=== PATIENT | female | born 1960 | race Caucasian/White ===

== ENCOUNTER → 2017-09-09 15:22 | Outpatient (CLI) | payer SELFPAY ==
[2017-09-09 18:16] LABS: Anion Gap 6 (5-15); BUN 18 mg/dL (7-18); BUN/Creat Ratio 20.4 RATIO (10-20); Calcium,Total 8.8 mg/dL (8.5-10.1); Chloride 104 mmol/L (98-107); Creatinine, Serum 0.88 mg/dL (0.55-1.02); EST Glomerular Filtration Rate 70 mL/min (>60); Est Glom Filt Rate - Afr Amer 85 mL/min (>60); Glucose 93 mg/dL (74-106); Sodium Level 141 mmol/L (136-145); Thyroid Stim Hormone (TSH) 1.31 uIU/mL (0.358-3.74)
== END ==
PROVIDERS: Family Provider Family Medicine; PCP Family Medicine; Visit Provider Family Medicine
DX: I10 Essential (primary) hypertension (principal); E03.9 Hypothyroidism, unspecified
CPT/HCPCS: 36415; 80048; 84443

== ENCOUNTER → 2017-09-16 11:19 | Outpatient (CLI) | payer SELFPAY ==
--- NOTE | 2017-09-16 11:30 | RAD_ITS ---
STUDY: X-RAY - LUMBAR SPINE REASON FOR EXAM: Female, 57 years old. Neuropathy, left sciatica. History of multiple sclerosis. TECHNIQUE: 5 view(s) of the lumbar spine were obtained. COMPARISON: None FINDINGS: Normal lumbar lordosis. There is no substantial scoliosis. There is a mild grade 1 anterolisthesis of L4 on L5. There is mild multilevel anterior endplate spondylosis of the lumbar vertebrae. There is moderate degenerative narrowing at L4-5, and minor narrowing at L2-3. There is no demonstrated osseous destructive lesion or acute fracture. The degenerative arthroses of the lower lumbar facet articulations, as prominently at L4-5 and on the right at L5-S1. There are mild degenerative arthrosis of the bilateral sacroiliac joints. The soft tissue structures are unremarkable. RAD/L/S Spine Min 4 Views IMPRESSION: Degenerative changes of the spine, as detailed above. Electronically Signed: Shaun Reed MD at 19:33 EDT , Service support ,
== END ==
PROVIDERS: Family Provider Family Medicine; PCP Family Medicine; Visit Provider Family Medicine
DX: G62.9 Polyneuropathy, unspecified (principal)
CPT/HCPCS: 72110

== ENCOUNTER → 2018-12-29 10:13 | Outpatient (CLI) | payer SELFPAY ==
[2018-12-29 13:10] LABS: Thyroid Stim Hormone (TSH) 0.63 uIU/mL (0.358-3.74)
== END ==
PROVIDERS: Family Provider Family Medicine; PCP Family Medicine; Referring Provider Family Medicine; Visit Provider Family Medicine
DX: E03.9 Hypothyroidism, unspecified (principal)
CPT/HCPCS: 36415; 84443

== ENCOUNTER → 2020-10-12 11:07 | Outpatient (CLI) | payer OTHER, SELFPAY ==
--- NOTE | 2020-10-12 11:14 | BI_ITS ---
MAMMOGRAPHY - BILATERAL SCREENING REASON FOR EXAM: Female, 60 years old. Routine annual screening examination. PERTINENT HISTORY: Non-contributory. History of remote bilateral breast reduction surgery. TECHNIQUE: Digital bilateral breast yury (3D mammographic acquisition) in the CC and MLO projections. 2-D mediolateral oblique (MLO) and craniocaudad (CC) views of both breasts were obtained. CAD: Full Field Digital Mammography with Computer Added Detection was performed. COMPARISON: No comparison mammograms available at this time. If any prior films become available, an addendum to this report can be generated. FINDINGS: Breast Composition: There are scattered areas of fibroglandular density. There are no dominant masses or suspicious calcifications. No other significant abnormalities are identified. BI/SCRN MAMM (CAD)W/YURY BILAT IMPRESSION: Negative screening mammogram. Yearly followup mammogram recommended. (A) ASSESSMENT CATEGORY: BIRADS Category 1: Negative. A letter regarding these results will be sent to the patient by the facility within 30 days. Approximately 10% of breast cancers are not detected by mammography. A normal mammogram should not delay biopsy of a clinically suspicious abnormality. [id number] Electronically Signed: Alfonzo Sheth MD at 12:12 EDT , Service support ,
== END ==
PROVIDERS: PCP Family Medicine; Referring Provider Family Medicine; Visit Provider Family Medicine
DX: Z12.31 Encounter for screening mammogram for malignant neoplasm of breast (principal)
CPT/HCPCS: 77063; 77067

== ENCOUNTER → 2021-03-20 08:20 | Outpatient (CLI) | payer OTHER, SELFPAY ==
[2021-03-20 10:39] LABS: Anion Gap 5 (5-15); BUN 11 mg/dL (7-18); BUN/Creat Ratio 13.1 RATIO (10-20); Calcium,Total 8.6 mg/dL (8.5-10.1); Chloride 106 mmol/L (98-107); Cholesterol 182 mg/dL (200); Creatinine, Serum 0.84 mg/dL (0.55-1.02); EST Glomerular Filtration Rate 74 mL/min (>60); Est Glom Filt Rate - Afr Amer 89 mL/min (>60); Free T3 2.3 pg/mL (2.18-3.98); Glucose 105 mg/dL (74-106); High Density Lipoprotein 55 mg/dL; Potassium 4.1 mmol/L (3.5-5.1); Sodium Level 140 mmol/L (136-145); T4 Free Direct 1.07 ng/dL (0.76-1.46); Thyroid Stim Hormone (TSH) 1.83 uIU/mL (0.358-3.74); Triglycerides 160 mg/dL; Very Low Density Lipoprotein 32 mg/dL (5-40)
== END ==
PROVIDERS: PCP Family Medicine; Visit Provider Family Medicine
DX: I10 Essential (primary) hypertension (principal); E03.9 Hypothyroidism, unspecified
CPT/HCPCS: 36415; 80048; 80061; 84439; 84443; 84481

== ENCOUNTER 2021-06-22 09:06 | Emergency (ER) | payer OTHER, SELFPAY ==
[2021-06-22 09:08] VITALS: BP 155/99; PULSE 84; RESP 16; TEMP 35.9; O2SAT 98; BMI 35.2
--- NOTE | 2021-06-22 09:31 | CT_ITS ---
STUDY: CT ABDOMEN AND PELVIS WITHOUT CONTRAST REASON FOR EXAM: Female, 61 years old. Abdominal pain and distention RADIATION DOSAGE (If Supplied By Facility): CTDIvol = ( 16.45 ) mGy, DLP = ( 932.69 ) mGycm TECHNIQUE: Transaxial images were obtained from the dome of the diaphragm to the symphysis pubis without oral contrast, and without intravenous contrast. Sagittal and coronal images were reconstructed. Individualized dose optimization techniques were used for this CT. COMPARISON: None. FINDINGS: The visualized lung bases are unremarkable. The visualized portions of the heart are within normal limits. Liver is unremarkable aside from scattered simple hepatic cysts. No specific follow-up needed. No suspicious enhancing lesion. There are multiple gallstones. Normal spleen. Normal pancreas. Normal bilateral adrenal glands. Normal right kidney. Normal left kidney. Normal visualized stomach. Normal small intestine. Retained stool noted throughout the majority of the colon. There are scattered colonic diverticula without CT evidence of acute diverticulitis. The appendix is visualized and appears normal. Appendix seen on coronal recon image 61 Normal abdominal aorta. Normal inferior vena cava. Normal retroperitoneum. Normal urinary bladder. Normal abdominal wall. Normal osseous structures. CT/Abdomen/Pelvis without Cont IMPRESSION: Cholelithiasis, no CT evidence of acute cholecystitis Multiple simple hepatic cysts, no specific follow-up needed No free intraperitoneal fluid, air, or suspicious adenopathy, normal appendix visualized Retained stool with diverticulosis Electronically Signed: Shaun Austin MD at 10:18 EDT ,
--- NOTE | 2021-06-22 09:32 | EX.ED.DYSGE1 ---
HPI <CHRISTA Garcia - Last Filed: 06/22/21 10:37> History of Present Illness Chief Complaint: Back Narrative Narrative: 61-year-old female with history of hypothyroidism, presents to the emergency department for a period of intense back pain. Patient has had thoracic back pain ongoing for greater than 1 month which she has been seeing her primary care doctor as well as a chiropractor. Patient states that roughly 11 PM last evening, she had one of the most intense searing pain she never had in her life, patient states that she was unable to sit still, she was sweating felt nauseous and the episode lasted 20 minutes. Patient states that she could not sleep at nighttime because she was so anxious that this pain would return. Patient states that she did have more urinary frequency however nothing out of the ordinary. Patient states that when the pain was searing she did remember grabbing her left side. Patient did call her PCP today who told her to come the ER for a work-up and may be rule out kidney stone. At this time, patient is asymptomatic. Denies any fever chills nausea vomiting this time. PFSH <CHRISTA Garcia - Last Filed: 06/22/21 10:37> [facility] Home Medications bupropion HCl 300 mg PO DAILY 06/22/21 [History Last Taken Unknown] levothyroxine 112 mcg PO DAILY 06/22/21 [History Last Taken Unknown] Allergy/AdvReac Type Severity Reaction Status Date / Time No Known Allergies Allergy Verified 06/22/21 09:06 Social History Smoking Status: Never smoker ROS <CHRISTA Garcia - Last Filed: 06/22/21 10:37> ROS ED ROS Narrative Constitutional: Negative for fever, chills, weight loss or gain, weakness Eyes: Negative for vision loss, vision change, double vision ENT: Negative for any hearing changes, ringing in the ears, discharge, pain Nose: Negative for any congestion, runny nose, sinus pain, allergies Throat: Negative for any sore throat, swelling, voice changes, Cardiovascular: Negative for any chest pain, tightness, palpitations, racing heartbeat Respiratory: Negative for any cough, sputum production, hemoptysis, shortness of breath, shortness of breath on exertion, Gastrointestinal: Negative for any abdominal pain, nausea, vomiting, diarrhea, constipation, blood in stool, blood in vomit : Negative for any incontinence, dysuria, retention, blood in urine. Positive for urinary frequency Muscle skeletal: Negative for any muscle joint pain, stiffness, myalgias, arthralgias, neck pain. Positive for. Of severe back pain, left flank pain Neurological: Negative for any headache, dizziness, syncope, numbness or tingling Skin: Negative for any rashes, lumps, itching, abrasions, lacerations Psychiatric: Negative for any depression, anxiety, stress, suicidal ideation, homicidal ideation Hematologic: Negative for any easy bruising, excessive bruising, easy bleeding Allergies: Negative for any eczema, hives, rash EXAM <CHRISTA Garcia - Last Filed: 06/22/21 10:37> Physical Exam Const Vital Signs: 06/22/21 09:08 Temperature 96.7 F L Temperature Source Temporal Pulse Rate 84 Respiratory Rate 16 Blood Pressure 155/99 H Blood Pressure Mean 117 Pulse Ox 98 Oxygen Delivery Method Room Air Positive well nourished and well developed General Appearance ED: well developed Eyes PERRL and EOMs intact bilaterally Neck no lymphadenopathy and supple Chest Wall inspection of chest normal and palpation of chest normal Resp normal respiratory effort and clear to auscultation bilaterally Cardio regular rate and regular rhythm GI normal to inspection, nondistended, normoactive bowel sounds, non-tender, non-distended and no masses Auscultation: normoactive bowel sounds Palpation: soft Back/Spine no CVA tenderness Extremity normal to inspection Neuro oriented x3 and CN's II-XII intact bilaterally Sensorium / Orientation: alert Motor Exam: strength 5/5 throughout Psych mental status grossly normal Skin no rashes or lesions noted <Dr. Gracy Hernandez DO - Last Filed: 06/22/21 10:39> Physical Exam Const Vital Signs: 06/22/21 09:08 Temperature 96.7 F L Temperature Source Temporal Pulse Rate 84 Respiratory Rate 16 Blood Pressure 155/99 H Blood Pressure Mean 117 Pulse Ox 98 Oxygen Delivery Method Room Air MDM <CHRISTA Garcia - Last Filed: 06/22/21 10:37> [facility] Narrative Medical decision making narrative: Patient appears well, patient appears nontoxic, vital signs are stable. Patient is asymptomatic now however she is concerned due to a severe back pain, abdominal pain, chest pain that occurred last night for 20 minutes. Patient did receive a full work-up.Patient's laboratory values were grossly unremarkable, patient had a negative urinalysis, negative for any infection or blood. Patient's high-sensitivity opponent was negative, patient's D-dimer was negative, patient's EKG was normal sinus with no ectopy. Patient's CT scan of the abdomen and pelvis showed no free intraperitoneal fluid, air or suspicious adenopathy and had a normal appendix. At this time, there is no indication of any acute pathology, patient is also asymptomatic at this time. At this time, there is no evidence of any OH, ACS, pulmonary embolus, acute intra-abdominal pathology. Patient feels well and will be discharged. Patient struck to return for any worsening symptoms, patient to follow-up outpatient. Lab Data Labs: Laboratory Results - last 24 hr 06/22/21 06/22/21 06/22/21 09:38 09:38 09:40 WBC 7.1 RBC 5.08 Hgb 15.0 Hct 45.2 MCV 89.0 MCH 29.5 MCHC 33.2 RDW Std Deviation 40.6 RDW Coeff of Barbara 12.4 Plt Count 282 MPV 9.7 Immature Gran % (Auto) 0.100 Neut % (Auto) 70.4 H Lymph % (Auto) 19.6 [place] % (Auto) 8.5 Eos % (Auto) 1.0 Baso % (Auto) 0.4 Absolute Neuts (auto) 5.0 Absolute Lymphs (auto) 1.39 Nucleated RBC % 0 D-Dimer Quant (PE/DVT) Sodium 139 Potassium 3.8 Chloride 108 H Carbon Dioxide 26.0 Anion Gap 5 BUN 15 Creatinine 0.99 Estim Creat Clear Calc 59.50 Est GFR (MDRD) Af Amer 74 Est GFR (MDRD) Non-Af 61 BUN/Creatinine Ratio 15.2 Glucose 108 H Calcium 8.7 Total Bilirubin 0.50 Direct Bilirubin 0.15 AST 33 ALT 31 Alkaline Phosphatase 95 Troponin I High Sens < 3 L Total Protein 7.7 Albumin 4.0 Globulin 3.7 Urine Color Yellow Urine Clarity Clear Urine pH 5.0 Ur Specific [place] 1.015 Urine Protein Negative Urine Glucose (UA) Normal Urine Ketones Negative Urine Occult Blood Negative Urine Nitrite Negative Urine Bilirubin Negative Urine Urobilinogen Normal Ur Leukocyte Esterase Negative Urine RBC 0 SEEN Urine WBC 0 SEEN Ur Squamous Epith Cells 0 SEEN Urine Bacteria 0 SEEN Urine Mucus 0 SEEN 06/22/21 10:04 WBC RBC Hgb Hct MCV MCH MCHC RDW Std Deviation RDW Coeff of Barbara Plt Count MPV Immature Gran % (Auto) Neut % (Auto) Lymph % (Auto) [place] % (Auto) Eos % (Auto) Baso % (Auto) Absolute Neuts (auto) Absolute Lymphs (auto) Nucleated RBC % D-Dimer Quant (PE/DVT) 0.39 Sodium Potassium Chloride Carbon Dioxide Anion Gap BUN Creatinine Estim Creat Clear Calc Est GFR (MDRD) Af Amer Est GFR (MDRD) Non-Af BUN/Creatinine Ratio Glucose Calcium Total Bilirubin Direct Bilirubin AST ALT Alkaline Phosphatase Troponin I High Sens Total Protein Albumin Globulin Urine Color Urine Clarity Urine pH Ur Specific [place] Urine Protein Urine Glucose (UA) Urine Ketones Urine Occult Blood Urine Nitrite Urine Bilirubin Urine Urobilinogen Ur Leukocyte Esterase Urine RBC Urine WBC Ur Squamous Epith Cells Urine Bacteria Urine Mucus Radiography Diagnostic Testing: Clinical Impression(s) from Imaging Studies Abdomen/Pelvis CT 06/22/21 09:31 IMPRESSION: Cholelithiasis, no CT evidence of acute cholecystitis Multiple simple hepatic cysts, no specific follow-up needed No free intraperitoneal fluid, air, or suspicious adenopathy, normal appendix visualized Retained stool with diverticulosis Electronically Signed: Shaun Austin MD at 10:18 EDT , EKG Normal sinus rhythm: Attestation: I personally reviewed and interpreted this EKG as follows: Comments: Normal sinus rhythm, rate of 64 bpm, MO interval 162 ms, QRS duration 90 ms, no acute ST elevation, no acute infarct noted. <Dr. Gracy Hernandez, DO - Last Filed: 06/22/21 10:39> [facility] Narrative Medical decision making narrative: I have personally performed a face to face assessment of the patient and have reviewed the GINI Note. I performed a substantive portion of the visit including all aspects of the following. My bañuelos findings include: History is [patient presents to the emergency department with complaint of a pain across her chest and upper abdomen last evening. Patient states that it came on all of a sudden felt like she was going to explode. Patient states that she has been having some discomfort in her mid back for about a month and has been seen by chiropractor. Patient states that pain seems to come and go. She denies chest pain or shortness of breath. She denies fever or recent illness. Patient did have some mild nausea when she had that severe pain last evening. Patient also felt like her ears were quite full when this happened. Patient states eventually the pain just dissipated went away and has not come back. Currently she is not having any pain. No history of kidney stones. She denies urinary symptoms.] Exam is [HEENT-PERRLA, EOMI. Cranial nerves II through XII grossly intact. TMs clear. Mucous membranes moist. No adenopathy. Cardiovascular-regular rate and rhythm without murmur or ectopy Lungs-clear to auscultation, chest wall stable without crepitus or subcu emphysema Abdomen-normoactive bowel sounds, soft, nontender, no rebound or rigidity, no peritoneal signs. Extremities-intact ?4, normal range of motion, normal pulses, atraumatic] Medical Decison Making patient's lab work-up was unremarkable. EKG and troponin were unremarkable. D-dimer was negative. CT scan of the abdomen pelvis showed gallstones without evidence of cholecystitis. At this point the etiology of her pain is unclear. She also had a negative D-dimer. Patient advised to follow-up with primary care physician in 3 to 5 days. She is to return if worsening pain, chest pain, shortness of breath, or condition worsening with [ ] Other additions or changes: [None] Lab Data Attestation: I reviewed the patient's lab results. Labs: Laboratory Results - last 24 hr 06/22/21 06/22/21 06/22/21 09:38 09:38 09:40 WBC 7.1 RBC 5.08 Hgb 15.0 Hct 45.2 MCV 89.0 MCH 29.5 MCHC 33.2 RDW Std Deviation 40.6 RDW Coeff of Barbara 12.4 Plt Count 282 MPV 9.7 Immature Gran % (Auto) 0.100 Neut % (Auto) 70.4 H Lymph % (Auto) 19.6 [place] % (Auto) 8.5 Eos % (Auto) 1.0 Baso % (Auto) 0.4 Absolute Neuts (auto) 5.0 Absolute Lymphs (auto) 1.39 Nucleated RBC % 0 D-Dimer Quant (PE/DVT) Sodium 139 Potassium 3.8 Chloride 108 H Carbon Dioxide 26.0 Anion Gap 5 BUN 15 Creatinine 0.99 Estim Creat Clear Calc 59.50 Est GFR (MDRD) Af Amer 74 Est GFR (MDRD) Non-Af 61 BUN/Creatinine Ratio 15.2 Glucose 108 H Calcium 8.7 Total Bilirubin 0.50 Direct Bilirubin 0.15 AST 33 ALT 31 Alkaline Phosphatase 95 Troponin I High Sens < 3 L Total Protein 7.7 Albumin 4.0 Globulin 3.7 Urine Color Yellow Urine Clarity Clear Urine pH 5.0 Ur Specific [place] 1.015 Urine Protein Negative Urine Glucose (UA) Normal Urine Ketones Negative Urine Occult Blood Negative Urine Nitrite Negative Urine Bilirubin Negative Urine Urobilinogen Normal Ur Leukocyte Esterase Negative Urine RBC 0 SEEN Urine WBC 0 SEEN Ur Squamous Epith Cells 0 SEEN Urine Bacteria 0 SEEN Urine Mucus 0 SEEN 06/22/21 10:04 WBC RBC Hgb Hct MCV MCH MCHC RDW Std Deviation RDW Coeff of Barbara Plt Count MPV Immature Gran % (Auto) Neut % (Auto) Lymph % (Auto) [place] % (Auto) Eos % (Auto) Baso % (Auto) Absolute Neuts (auto) Absolute Lymphs (auto) Nucleated RBC % D-Dimer Quant (PE/DVT) 0.39 Sodium Potassium Chloride Carbon Dioxide Anion Gap BUN Creatinine Estim Creat Clear Calc Est GFR (MDRD) Af Amer Est GFR (MDRD) Non-Af BUN/Creatinine Ratio Glucose Calcium Total Bilirubin Direct Bilirubin AST ALT Alkaline Phosphatase Troponin I High Sens Total Protein Albumin Globulin Urine Color Urine Clarity Urine pH Ur Specific [place] Urine Protein Urine Glucose (UA) Urine Ketones Urine Occult Blood Urine Nitrite Urine Bilirubin Urine Urobilinogen Ur Leukocyte Esterase Urine RBC Urine WBC Ur Squamous Epith Cells Urine Bacteria Urine Mucus Radiography Diagnostic Testing: Clinical Impression(s) from Imaging Studies Abdomen/Pelvis CT 06/22/21 09:31 IMPRESSION: Cholelithiasis, no CT evidence of acute cholecystitis Multiple simple hepatic cysts, no specific follow-up needed No free intraperitoneal fluid, air, or suspicious adenopathy, normal appendix visualized Retained stool with diverticulosis Electronically Signed: Shaun Austin MD at 10:18 EDT Reading Location ID and State: [facility] / [place] , Service support , Discharge Plan Triage Chief Complaint: Back ED Midlevel Provider: Rodriguez Perkins ED Provider: Gracy Hernandez Dx/Rx/DC Orders Clinical Impression: Abdominal pain, Chest pain in adult, Acute flank pain Instructions: Abdominal Pain, ED Chest Pain, Noncardiac, ED Pain, Acute, Uncertain Cause Prescriptions: No Action levothyroxine 112 mcg tablet 112 mcg PO DAILY RF: 0 bupropion HCl 300 mg tablet extended release 24 hr 300 mg PO DAILY RF: 0 Primary Care Provider: Rodriguez Tidwell Referrals: Rodriguez Tidwell MD [Primary Care Provider] - Activity Restrictions/Additional Instructions: Please follow-up with your primary care physician, please return here for any worsening issues Print Language: [place] Disposition Disposition: Home, Self Care
--- NOTE | 2021-06-22 09:44 | EKG12_ITS ---
Test Reason : BACK Blood Pressure : / mmHG Vent. Rate : 064 BPM Atrial Rate : 064 BPM P-R Int : 162 ms QRS Dur : 090 ms QT Int : 388 ms P-R-T Axes : 058 -01 019 degrees QTc Int : 400 ms Normal sinus rhythm Normal ECG Confirmed by ARIANA TANG, GILA ([id number]), avid editor JANET WAY ([id number]) on 06/25/2021 11:11:36 AM Referred By: ANURADHA Confirmed By:GILA LANE MD
[2021-06-22 09:52] LABS: Bacteria 0 SEEN /hpf (None Seen); Mucous, Urine 0 SEEN /hpf (<or=2+); Red Blood Cells-Urine 0 SEEN /hpf (0-5); Squamous Epithelial Cells - UA 0 SEEN /hpf (5-10); White Blood Cells 0 SEEN /hpf (0-5)
[2021-06-22 09:53] LABS: Absolute Lymphocyte Count 1.39 X10^3/uL (0.83-4.51); Basophil# 0.03 X10^3/uL; Basophil% 0.4 % (0-1); Eosinophil# 0.07 X10^3/uL; Hematocrit 45.2 % (37-47); Lymphocyte # 1.39 X10^3/ul (0.83-4.51); Lymphocyte % 19.6 % (19-41); Mean Corp Hgb Conc 33.2 g/dL (32-36); Mean Corpuscular Hgb 29.5 pg (27.0-32.0); Mean Platelet Vol. 9.7 fl (6.2-12.0); Monocyte% 8.5 % (0-10); NRBC Flagged by Analyzer 0 % (0-5); Neutrophil # 4.99 X10^3/uL (2.7-7.7); Neutrophil % 70.4 % (47-70); Platelet Count 282 K/mm3 (150-450); RBC Distribution Width CV 12.4 % (11.6-14.6); RBC Distribution Width SD 40.6 fl (35.1-43.9); Red Blood Count 5.08 M/mm3 (4.2-5.4); White Blood Count 7.1 K/mm3 (4.4-11.0)
[2021-06-22 10:11] LABS: AST(SGOT) 33 U/L (15-37); Alanine Aminotransfer ALT/SGPT 31 U/L (13-56); Alkaline Phosphatase 95 U/L (45-117); Anion Gap 5 (5-15); BUN 15 mg/dL (7-18); BUN/Creat Ratio 15.2 RATIO (10-20); Bilirubin, Direct 0.15 mg/dL (0.00-0.30); Calcium,Total 8.7 mg/dL (8.5-10.1); Chloride 108 mmol/L (98-107); Creatinine, Serum 0.99 mg/dL (0.55-1.02); EST Glomerular Filtration Rate 61 mL/min (>60); Est Glom Filt Rate - Afr Amer 74 mL/min (>60); Globulin 3.7 g/dL (2.2-4.2); Glucose 108 mg/dL (74-106); Potassium 3.8 mmol/L (3.5-5.1); Protein, Total 7.7 g/dL (6.4-8.2); Sodium Level 139 mmol/L (136-145); Troponin-I HS < 3 pg/mL (3.0-54.0)
[2021-06-22 10:19] LABS: Color, Urine Yellow (Yellow); Glucose, Dipstick Normal (Normal); Ketone-Dipstick Negative (Negative); Leukocyte Esterase-Dipstick Negative /ul (Negative); Nitrite-Dipstick Negative (Negative); Occult Blood-Urine Negative /ul (Negative); Protein-Dipstick Negative (Negative); Specific Gravity, Urine 1.015 (1.002-1.030); Urine Bilirubin Dipstick Negative (Negative); Urine Clarity Clear (Clear); Urine Urobilinogen Normal (Normal)
[2021-06-22 10:27] LABS: D-Dimer Quantitative (DVT/PE) 0.39 FEU/ug/m (0.27-0.49)
== END 2021-06-22 11:03 | disposition home or self-care (01) ==
PROVIDERS: Nurse Practitioner; Emergency Provider Emergency Medicine; PCP Family Medicine; Visit Provider Emergency Medicine
DX: R07.9 Chest pain, unspecified (principal); M54.6 Pain in thoracic spine; K80.20 Calculus of gallbladder without cholecystitis without obstruction; R10.9 Unspecified abdominal pain; E03.9 Hypothyroidism, unspecified
CPT/HCPCS: 74176; 80048; 80076; 81001; 84484; 85025; 85379; 93005; 99283; A4216

== ENCOUNTER → 2021-08-05 | Outpatient (CLI) | payer OTHER, SELFPAY ==
--- NOTE | 2021-08-05 07:59 | US_ITS ---
STUDY: ABDOMINAL ULTRASOUND - RIGHT UPPER QUADRANT REASON FOR VISIT: Female, 61 years old . Right upper quadrant pain. History of gallstones. TECHNIQUE: Ultrasound evaluation of the right upper quadrant was performed with real-time and static ramsey-scale imaging. TECHNICAL QUALITY: Adequate. COMPARISON: None. FINDINGS: Liver: The liver measures 14.4 cm. There is normal echogenicity of the liver. The bile ducts are within normal limits. There is hepatic color flow. The direction of portal flow is hepatopetal. 2 cysts are seen in the right lobe. There is a 2.8 cm x 2.7 cm x 2.7 cm cyst. There is also evidence of a 1.8 cm x 1.9 cm x 1.5 cm cyst. Gallbladder: Normal distended gallbladder. The gallbladder wall is mildly thickened and measures 4 mm. There is a negative sonographic Hammer''s sign. There is no pericholecystic fluid. There are multiple echogenic structures within the gallbladder, consistent with multiple gallstones. Common Bile Duct (C.B.D.): The common bile duct measures 5 mm. Pancreas: Normal size of the head, body and tail of the pancreas. There is normal echogenicity of the pancreas. There is no demonstrated pancreatic mass or cyst. Right Kidney: Normal size of the right kidney. The right kidney measures 10 cm x 5 cm x 4.5 cm. Normal renal cortex. The right cortex measures 1.4 cm. There is no demonstrated renal mass or cyst. There is no right hydronephrosis. US/Gallbladder IMPRESSION: Stable hepatic cysts. Multiple gallstones with mild thickening of the gallbladder wall. Electronically Signed: Alfonzo Sheth MD at 9:09 EDT ,
== END | disposition home or self-care (01) ==
PROVIDERS: PCP Family Medicine; Referring Provider Surgery; Visit Provider Surgery
DX: R10.11 Right upper quadrant pain (principal)
CPT/HCPCS: 76705

== ENCOUNTER 2021-12-26 05:52 | Day surgery (SDC) | payer OTHER, SELFPAY ==
--- NOTE | 2021-12-26 | GALL_PTH ---
PATIENT: JOSE R SANCHEZ LOC: [facility] [place] U#:[id number] AGE/SX: 61/F ROOM: RE12/26/[address]: Dr. Tammy Shore MD : [id number] BED: DIS: 12/26/2021 SPEC #: [id number] RECD: 12/26/21 12:46 STATUS: ELIANA RECora #: [id number] JAZ: 12/26/21 00:[address]: Tammy Shore DEPT: SURGICAL PATHOLOGY RECD BY: Prince Valenzuela ENTERED: 12/26/21 12:46 SP TYPE: KIT MORRIS DR: Dr. Rodriguez Tidwell MD Tissues: Gallbladder, NOS Procedures: Surgery Specimen Level III HEADER OPERATION: Laparoscopic cholecystectomy with IOC PRE-OP DIAGNOSIS: Gallstones, RUQ abdominal pain TISSUE SUBMITTED: Gallbladder MICROSCOPIC DIAGNOSIS Gallbladder, cholecystectomy: Chronic cholecystitis and cholelithiasis. Benign pericystic lymph node. AM:char 12/27/2021 MICROSCOPIC DESCRIPTION Slides are reviewed. GROSS DESCRIPTION Received is one container labeled with the patient's name and designated gallbladder. The specimen consists of a previously opened gallbladder measuring 8.5 cm in length and up to 3 cm in diameter. The external surface is pink-fry, smooth and glistening for the most part. Focally it is granular, hemorrhagic and contains cautery artifact. The gallbladder contains green-yellow mucoid bile. Present in the gallbladder and also in the container are multiple yellowish-green, irregular to mulberry stones measuring in aggregate 7 x 7 x 2 cm and 0.1 to 1.5 cm in greatest dimension. The mucosa is bile-stained and without any mass lesions. The gallbladder wall measures up to 0.2 cm in thickness. Present close to cystic duct is an ovoid nodule, a possible lymph node, measuring 0.8 cm in greatest dimension. [employer] sections from the gallbladder and the cystic duct including entire possible lymph node are submitted in one cassette. / SJ:char 12/26/2021 TC:3 CPT: 92630
--- NOTE | 2021-12-26 06:30 | RAD_ITS ---
STUDY: INTRAOPERATIVE GLANDULAR. REASON FOR EXAM: Female, 61 years old. PAIN, GALL STONES, RUQ PAIN FLUOROSCOPY TIME (if supplied): ( 7 seconds ) minutes/seconds. A cine loop of 46 images was submitted. TECHNIQUE: An intraoperative cholangiogram was performed by the surgeon. Imaging was provided. COMPARISON: None. FINDINGS: The intra and extrahepatic biliary ducts are unremarkable. No intraluminal filling defect is seen. There is free flow of contrast into the duodenum. RAD/Cholangiogram/ O R,Initial IMPRESSION: Unremarkable intraoperative cholangiogram. Electronically Signed: Alfonzo Sheth MD at 9:53 EDT ,
[2021-12-26 06:31] VITALS: BP 120/73; PULSE 69; RESP 18; TEMP 36.5; O2SAT 100; BMI 32.2
[2021-12-26] MEDS: Lactated Ringers 1,000 ML 15 ML IV (06:47)
--- NOTE | 2021-12-26 07:13 | HP.PCM_ITS ---
History and Physical Date of Admission: 12/26/21 Date of Service:? 12/10/21 MR#: [id number] Acct: [id number] Name:JOSE R BERNARD Rep #: [id number] : 1960 ? ? Provider: Dr. Tammy Shore MD Age/Sex:? 61/F ? ? Location: [facility] Status: Signed Intake Vital Signs ? 12/10/2209:15 Height 5 ft 7 in Weight: 208 lb 2 oz BMI 32.5 BP 139/84 H Blood Pressure Location Rt popliteal Position Sitting Respiration 16 Pulse 86 Pulse Source Monitor Temp 97.7 F L Temp Source Temporal Pulse Oximetry (%) 99 Oxygen Delivery Method room air Intake Visit Reasons:?UPDATE H & P Chief Complaint: update H&P for cholecystectomy [address] Reporter Required: No Is patient in pain?: No Allergies No Known Allergies Allergy (Verified 12/10/21 10:17) Medications bupropion HCl 300 mg 24 hr tablet, extended release 300 mg PO DAILY 06/22/21 [History Confirmed 12/10/21] levothyroxine 112 mcg tablet 112 mcg PO DAILY 06/22/21 [History Confirmed 12/10/21] PFSH Family History? Unknown Lupus Social History? Smoking Status:? Never smoker alcohol intake:? current details:? social substance use type:? does not use HPI HPI Surgical H&P: Yes HPI: 61-year-old female presents for update H&P due to gallstones and right upper quadrant pain.? 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 Patient did have an ultrasound of her gallbladder did show multiple gallstones as well as called the wall 4 mm.? Patient states she is in September she did get COVID and has lost her taste of sense and smell since then.? Patient has lost about 20 pounds due to changing her diet due to the loss of taste/smell.? Patient states she has had 2 episodes of the epigastric and right upper quadrant pain nausea and vomiting since she was seen in office.? Patient is agreeable to have a laparoscopic cholecystectomy.? Patient does have it scheduled for December 26.? Will be going on vacation January 11 through to [place]. ROS General General: No weight change, appetite, fatigue, colon cancer or breast cancer HEENT HEENT: No difficulty swallowing, eye injury, eye surgery, swollen glands or hoarseness Endo Endocrine: Yes thyroid disease; No diabetes mellitus, thyroid cancer, Hair loss, heat intolerance or cold intolerance Skin Skin: No rash or changing moles Musc Musculoskeletal: No back problems, arthritis, rheumatoid arthritis, gout or joint pain Cardio Cardiovascular: No murmur, pacemaker, heart disease, atrial fibrillation, high blood pressure, heart attack, heart stent, palpitations, shortness of breat with exertion or chest pain Psych Psychiatric: No depression, anxiety or hearing voices Resp Respiratory: No shortness of breath, No sleep apnea, No cough, No COPD, No asthma, No emphysema and No wheezing Gastro Gastrointestinal: No abdominal pain, No nausea or vomiting, No diarrhea, No constipation, No blood in stool, No acid reflux, No hemorrhoids, No ulcers, Yes gallbladder problem and No black,tarry stools Seven Hematologic: No blood thinners, No blood disorders, No bleeding, No anemia and No blood clots Neuro Neurologic: No numbness and No tingling Exam Const General: cooperative, healthy appearing and no acute distress [facility] Head: normal to inspection Resp Effort & Inspection: normal respiratory effort Cardio Rate: regular rate GI Inspection: non-distended Palpation: soft, no guarding, no hernias and nontender Skin General: no rashes or lesions noted Neuro General: patient oriented x3 Extrem General: no clubbing, cyanosis or edema Psych Affect: normal affect Assessment and Plan Assessment and Plan (1) Gallstones: ?Status:?Acute (2) RUQ abdominal pain: ?Status:?Acute Plan Reviewed the anatomy with the patient and discussed the procedure: laparoscopic cholecystectomy with cholangiograms, possible open. Review risks including but not limited to bleeding, infection, hernia, bile leak, retained gallstones requiring another procedure ERCP- Endoscopic Retrograde Cholangiopancreatography, injury to another organ (bile ducts, common bile duct, small bowel, etc.) and conversion to an open procedure. All questions were answered. Tammy Shore M.D. Pager: [phone] [facility] [address] [place] [address], [facility], [address] [place] [address] Office: [phone] Coding Level of Care Code Off vis,est,level 3 Diagnoses Gallstones? K80.20 RUQ abdominal pain? R10.11 12/12/21 1004 <Electronically signed by Tammy Shore MD> Date Tammy Shore MD
[2021-12-26 07:29] LABS: Thyroid Stim Hormone (TSH) 1.26 uIU/mL (0.358-3.74)
[2021-12-26] MEDS: Cefotetan 2 GM in 0.9% NS 100 ML IV (07:35)
--- NOTE | 2021-12-26 08:47 | OP.PCM_ITS ---
Report of Operation Date of Procedure: 12/26/21 Pre-Operative Diagnosis: Cholelithiasis, chronic cholecystitis Post-Operative Diagnosis: Same Surgery/Procedure Performed:: Laparoscopic cholecystectomy with cholangiograms Surgeon: Tammy Shore Type of Anesthesia: General/Supplemental Anesthesiologist: Alex Copeland Special Medications: Cefotetan 2 g IV x1 Specimen's removed: Gallbladder and stones Estimated Blood Loss (mL): 40 cc Description of Procedure: Indications: this is a 61 year-old female who developed abdominal pain/nausea/vomiting and on workup was found to have cholelithiasis, with a normal common bile duct. Laparoscopic cholecystectomy was elected. Description procedure: The patient was placed on operating table in supine position. A timeout was completed verifying correct patient, procedure, site, position and special equipment prior to beginning procedure. General A nesthesia was induced. The abdomen was prepped and draped in usual sterile fashion. An incision was made in the natural skin line above the umbilicus. The fascia was elevated and incised. The peritoneum was elevated and incised. Entry into the peritoneum was confirmed visually and no bowel was noted in the vicinity of the incision. Boo trocar was placed. The abdomen was insufflated with carbon dioxide to a pressure of 12-15 mmHg. Patient tolerated insufflation well. The laparoscope was then inserted and abdomen inspected. No injuries from initial trocar placement were noted. Anton tional trochars were then inserted in the following locations 5 mm trocar in the epigastrium and 2 more 5 mm trochars along the right costal margin. The abdomen was inspected the common bile duct was seen and did appear to be dilated. The table is placed in reverse Trendelenburg position with the right side up. The dome of the gallbladder was grasped with atraumatic grasper passed through the lateral port and retracted over the dome of the liver. Infundibulum was then grasped with atraumatic grasper through the midclavicular port and retracted to the right lower quadrant. This maneuver exposed Calot's triangle. The peritoneum overlying the gallbladder infundibulum was then incised and cystic duct and artery identified and circumferentially dissected. Magdaleno catheter was used for cholangiograms. The cholangiogram showed good filling of the common bile duct into the duodenum with no filling defects, good filling of the right and left bile ducts as well. The cystic duct and artery were then doubly clipped and divided close to the gallbladder. The gallbladder then dissected from its peritoneal attachments by electrocautery. There was some bleeding of the gallbladder fossa due to intrahepatic gallbladder. Erbe was used for hemostasis. Clovis was also placed. Hemostasis was checked and the gallbladder and contained stones were removed using the endoscopic retrieval bag through the umbilical port. The gallbladder is passed off table as specimen. The gallbladder fossa was irrigated with saline and hemostasis obtained. There is no evidence of bleeding from the gallbladder fossa or cystic artery leakage of bile from the cystic duct stump. Secondary trochars removed under direct vision. No bleeding was noted the trocar sites. The laparoscope was withdrawn and umbilical trocar removed. The abdomen was allowed to collapse. The fascia of the 12 mm trocar was closed with a [id number] 0 Vicryl suture. The skin was closed with sutures of 4-0 Monocryl and Steri-Strips. The patient was extubated. The patient tolerated procedure well and was taken to the postanesthesia care unit in stable condition. Complications none
--- NOTE | 2021-12-26 08:53 | DCINST_ITS ---
Discharge Instructions Diet Discharge Diet: Light diet - advance as tolerated Activity Discharge Activity: May Not Drive (while taking narcotic pain medications.) May shower in (days): 1 Lifting Restrictions: no lifting >20 lbs x 2 wks, no strenuous exercise for 4 wks Dressing / Incision Call your doctor if your incision/area has: Continuous Slow Oozing, Sudden Increased Bleeding, Increased Pain/ Swelling, Increased Redness, Foul Smelling Discharge and Swelling at the incision site Call your doctor if you observe: Fever of 101 or Higher Remove Dressing in: 2 days Cleanse incision/area with: Soap & Water Additional Dressing/Incision Instructions:: Steri-Strips will fall off in 7 to 10 days, if they do not fall off okay to remove after 10 days. Follow Up Care Please Follow Up With: Tammy Shore MD When: Call the office for a follow-up appointment 2 weeks; after 5 PM and on the weekends call [phone] with any concerns. Test Results: Test results from this visit will be discussed in further detail at your follow- up appointment, if applicable. Discharge Plan Admission Attending Provider: Tammy Shore Primary Care Provider: Rodriguez Tidwell Discharge Orders/Prescriptions Prescriptions: New oxycodone-acetaminophen 5-325 mg tablet 1 tab PO Q6H PRN (Reason: pain) 3 Days Qty: 10 0RF Continued levothyroxine 112 mcg tablet 112 mcg PO DAILY Label Comments: TAKE 1 TABLET BY MOUTH EVERY DAY bupropion HCl 300 mg tablet extended release 24 hr 300 mg PO DAILY Label Comments: TAKE 1 TABLET BY MOUTH EVERY DAY magnesium 250 mg Tablet 400 mg PO DAILY cbd oil 1 gtt PO/SL QODAY Referrals / Follow Up: Rodriguez Tidwell MD [Primary Care Provider] - Disposition Disposition (needs filled in before D/C Order can be placed): Home, Self Care
[2021-12-26 09:03] VITALS: BP 120/73; BP 133/67; PULSE 90; RESP 18; TEMP 36.5; O2SAT 95
[2021-12-26 09:15] VITALS: BP 120/73; BP 146/81; PULSE 75; RESP 16; O2SAT 98
[2021-12-26 09:30] VITALS: BP 120/73; BP 125/82; PULSE 60; RESP 16; O2SAT 99
[2021-12-26 09:45] VITALS: BP 120/73; BP 144/78; PULSE 54; RESP 16; TEMP 36; O2SAT 100
[2021-12-26] MEDS: oxyCODONE 5 MG Tablet PO (10:04)
[2021-12-26] MEDS: Acetaminophen 325 MG Tablet PO (10:06)
[2021-12-26 10:30] VITALS: BP 120/73; BP 139/86; PULSE 78; RESP 16; TEMP 36.6; O2SAT 97
== END 2021-12-26 10:46 | disposition home or self-care (01) ==
LOC: SDC 05:52 → AC 05:53
PROVIDERS: Anesthesiology; PCP Family Medicine; Referring Provider Surgery; Visit Provider Surgery
PROC: (CPT 47610; principal; 2021-12-26 07:10)
DX: K80.10 Calculus of gallbladder with chronic cholecystitis without obstruction (principal); Z86.16 Personal history of COVID-19; F41.9 Anxiety disorder, unspecified; E07.9 Disorder of thyroid, unspecified; Z97.3 Presence of spectacles and contact lenses
CPT/HCPCS: 47563; 00790; 74300; 76000; 84443; 88304; 93005; J7120; J2405

== ENCOUNTER → 2023-06-05 | Outpatient (CLI) | payer OTHER, SELFPAY ==
[2023-06-05 11:37] LABS: ALB/GLOB Ratio 1.2 RATIO (0.9-2.4); AST(SGOT) 15 U/L (15-37); Alanine Aminotransfer ALT/SGPT 11 U/L (13-56); Alkaline Phosphatase 80 U/L (45-117); Anion Gap 4 (5-15); BUN 17 mg/dL (7-18); BUN/Creat Ratio 18.8 RATIO (10-20); Calcium,Total 8.6 mg/dL (8.5-10.1); Chloride 108 mmol/L (98-107); Cholesterol 223 mg/dL (200); EST Glomerular Filtration Rate 67 mL/min (>60); Est Glom Filt Rate - Afr Amer 81 mL/min (>60); Free T3 2.8 pg/mL (2.18-3.98); Globulin 3.4 g/dL (2.2-4.2); Glucose 105 mg/dL (74-106); High Density Lipoprotein 67 mg/dL; Protein, Total 7.4 g/dL (6.4-8.2); Sodium Level 139 mmol/L (136-145); Thyroid Stim Hormone (TSH) 1.08 uIU/mL (0.358-3.74); Triglycerides 157 mg/dL; Very Low Density Lipoprotein 31 mg/dL (5-40)
[2023-06-05 12:20] LABS: Hemoglobin A1c 5.3 % (3.8-5.6)
== END | disposition home or self-care (01) ==
LOC: MTLAB 08:54
PROVIDERS: PCP Family Medicine; Referring Provider Family Medicine; Visit Provider Family Medicine
DX: E03.9 Hypothyroidism, unspecified (principal); I10 Essential (primary) hypertension; Z13.1 Encounter for screening for diabetes mellitus
CPT/HCPCS: 36415; 80053; 80061; 83036; 84439; 84443; 84481